=== PATIENT | male | born 1955 ===

== ENCOUNTER 2018-07-23 17:44 | Outpatient (REF) | payer MEDICARE, MEDICAID, SELFPAY ==
[2018-07-23 21:55] LABS: ALT 23 U/L (12-78); AST 23 U/L (15-37); Albumin 3.7 g/dL (3.4-5.0); Alkaline Phosphatase 154 U/L (46-116); Anion Gap 8.7 mmol/L (3-11); BUN 17 mg/dL (7-18); Bilirubin, Total 0.3 mg/dL (0.2-1.0); CO2 26.3 mmol/L (21.0-32.0); CREATININE 1.14 mg/dL (0.70-1.30); Calcium 8.6 mg/dL (8.5-10.1); Chloride 106 mmol/L (98-107); GGT 74 U/L (15-85); Glucose 103 mg/dL (70-100); Sodium 141 mmol/L (136-145); Total Protein 7.8 g/dL (6.4-8.2)
[2018-07-25 12:49] LABS: Albumin 49.9 % (55.8-66.1)
== END 2018-07-23 18:04 ==
LOC: NCHCN 17:44
PROVIDERS: PCP Family Medicine; Visit Provider Family Medicine
DX: N28.9 Disorder of kidney and ureter, unspecified (principal); R74.8 Abnormal levels of other serum enzymes; R05 Cough; F17.200 Nicotine dependence, unspecified, uncomplicated
CPT/HCPCS: 80053; 82977; 84165

== ENCOUNTER 2018-11-19 12:33 | Outpatient (REF) | payer MEDICARE, MEDICAID, SELFPAY ==
[2018-11-19 21:55] LABS: ALT 27 U/L (12-78); AST 20 U/L (15-37); Albumin 3.7 g/dL (3.4-5.0); Alkaline Phosphatase 166 U/L (46-116); Anion Gap 9.2 mmol/L (3-11); BUN 14 mg/dL (7-18); Bilirubin, Total 0.3 mg/dL (0.2-1.0); CO2 29.8 mmol/L (21.0-32.0); CREATININE 1.18 mg/dL (0.70-1.30); Calcium 9.3 mg/dL (8.5-10.1); Chloride 105 mmol/L (98-107); Glucose 194 mg/dL (70-100); Potassium 4.3 mmol/L (3.5-5.1); Sodium 144 mmol/L (136-145)
== END 2018-11-19 12:53 ==
LOC: NCHCN 12:33
PROVIDERS: PCP Family Medicine; Visit Provider Family Medicine
DX: R74.8 Abnormal levels of other serum enzymes (principal)
CPT/HCPCS: 80053

== ENCOUNTER 2019-07-10 22:42 | Outpatient (REF) | payer MEDICARE, MEDICAID, SELFPAY ==
[2019-07-10 21:22] LABS: Anion Gap 11.2 mmol/L (3-11); BUN 17 mg/dL (7-18); CO2 23.8 mmol/L (21.0-32.0); CREATININE 1.13 mg/dL (0.70-1.30); Calcium 9.6 mg/dL (8.5-10.1); Chloride 105 mmol/L (98-107); Glucose 147 mg/dL (70-100); Potassium 4.4 mmol/L (3.5-5.1); Sodium 140 mmol/L (136-145)
== END 2019-07-10 23:02 ==
LOC: NCHCN 22:42
PROVIDERS: PCP Family Medicine; Visit Provider Registered Nurse
DX: E11.9 Type 2 diabetes mellitus without complications (principal)
CPT/HCPCS: 80048

== ENCOUNTER 2019-09-18 22:00 | Outpatient (REF) | payer MEDICARE, MEDICAID, SELFPAY ==
[2019-09-18 21:45] LABS: TSH 0.97 uIU/mL (0.36-3.74)
== END 2019-09-18 22:20 ==
LOC: NCHCN 22:00
PROVIDERS: PCP Family Medicine; Visit Provider Registered Nurse
DX: R63.4 Abnormal weight loss (principal); I72.0 Aneurysm of carotid artery; R79.89 Other specified abnormal findings of blood chemistry; Z87.448 Personal history of other diseases of urinary system
CPT/HCPCS: 84443

== ENCOUNTER 2019-12-18 15:00 | Outpatient (REF) | payer MEDICARE, MEDICAID, SELFPAY ==
[2019-12-18 21:42] LABS: Anion Gap 13.5 mmol/L (3-11); BUN 17 mg/dL (7-18); CO2 24.5 mmol/L (21.0-32.0); CREATININE 1.25 mg/dL (0.70-1.30); Calcium 9.6 mg/dL (8.5-10.1); Chloride 106 mmol/L (98-107); Estimated GFR 58.15 (mL/min/1.73m2); Glucose 146 mg/dL (74-106); Sodium 144 mmol/L (136-145)
== END 2019-12-18 15:20 ==
LOC: NCHCN 15:00
PROVIDERS: PCP Family Medicine; Visit Provider Nurse Practitioner Family
DX: E04.9 Nontoxic goiter, unspecified (principal); Z87.448 Personal history of other diseases of urinary system
CPT/HCPCS: 80048

== ENCOUNTER 2019-12-24 22:39 | Outpatient (REF) | payer MEDICARE, MEDICAID, SELFPAY ==
[2019-12-24 23:02] LABS: PROTEIN 59.2 mg/dL
[2019-12-24 23:03] LABS: Prot/Crea Ur Ratio 0.21
== END 2019-12-24 22:59 ==
LOC: NCHCN 22:39
PROVIDERS: PCP Family Medicine; Visit Provider Registered Nurse
DX: E11.9 Type 2 diabetes mellitus without complications (principal)
CPT/HCPCS: 82565; 84156

== ENCOUNTER 2020-03-25 12:07 | Outpatient (REF) | payer MEDICARE, MEDICAID, SELFPAY ==
[2020-03-25 20:28] LABS: HCT 43.4 % (40.0-50.0); HGB 14.2 g/dL (13.5-17.5); Mean Corp. HGB Concentration 32.7 g/dL (32.0-36.0); Mean Corpuscular Hemoglobin 24.4 pg (27.0-33.0); Mean Corpuscular Volume 74.4 fL (80-95); Mean Platelet Volume 10.1 fL (8.0-11.0); Platelet Count 279 x1000/uL (130-400); RBC 5.83 m/cumm (4.50-6.00); RBC Distribution Width 19.2 % (11.8-14.1); White Blood Cell Count 7.54 k/cumm (4.4-10.8)
[2020-03-25 21:07] LABS: Hemoglobin A1C 6.7 % (3.8-5.6)
== END 2020-03-25 12:27 ==
LOC: NCHCN 12:07
PROVIDERS: PCP Family Medicine; Visit Provider Registered Nurse
DX: E11.9 Type 2 diabetes mellitus without complications (principal); D64.9 Anemia, unspecified
CPT/HCPCS: 85027; 83036